=== PATIENT | female | born 1990 | race African-American/Black ===

== ENCOUNTER 2016-09-10 08:27 | Day surgery (SDC) | payer OTHER ==
[~2016-09-10] VITALS: Ht 167.6 cm; Wt 69.4 kg
[~2016-09-10 08:27] MED LIST: ACET325T33 PO; FAMO-18 PO; IBUP-1542 PO; PREN-39 PO
[2016-09-10 09:45] VITALS: BP 116/86; PULSE 91; RESP 20
[2016-09-10 09:57] VITALS: Ht 167.6 cm; Wt 69.4 kg
[2016-09-10] MEDS ORDERED: PROPOFOL 40 ML ONE (10:04)
[2016-09-10 11:00] VITALS: BP 125/84; PULSE 76; RESP 13
--- NOTE | 2016-09-10 17:27 | GILP ---
DATE OF PROCEDURE: 09/10/2016 NAME OF PROCEDURE: Esophagogastroduodenoscopy. PREOPERATIVE DIAGNOSIS: Patient presenting with history of chronic abdominal pain unresponsive to r outine symptomatic treatment. Rule out peptic ulcer disease. POSTOPERATIVE DIAGNOSES: 1. Nodular gastritis of the mid body and fundus of the stomach, rule out H. pylori infection. 2. Esophagus and duodenum appeared normal. DESCRIPTION OF PROCEDURE: After the informed written consent was obtained, the patient was asked to lie on the left lateral side. Intravenous anesthesia was given by anesthesiologist, Dr. Parrish. When the patient became somnolent, the Olympus video upper endoscope was introduced into the oroph arynx, then into the esophagus. Esophagus appeared normal with no esophagitis, no ulcer disease. S cope at this time was advanced into the stomach. Nodularity of the fundus with erythema noted, also some part of the part of the body was noted. Multiple biopsies were obtained in random fashion to rule out H. pylori infection to rule out MALToma. Scope at this time was advanced into the duodenum . Duodenum appeared normal. Endoscope at this time was withdrawn. Biopsies were obtained as menti oned earlier on and the procedure was terminated. PLAN: Recommend omeprazole 40 mg a day. Dictated By: REGI PALMER/RAYMUNDO Conf#: [id number] DID#: [id number] CC: NATALIA PARKER MD; REGI SANABRIA MD;*[facility]*
== END 2016-09-10 10:52 | disposition home or self-care (01) ==
LOC: GIL 08:27
PROVIDERS: ATTEND Internal Medicine Gastroenterology
DX: K29.50 Unspecified chronic gastritis without bleeding (principal)
CPT/HCPCS: 43239; 88305; 88312; Z7610